=== PATIENT | female | born 1965 | race Caucasian/White ===

== ENCOUNTER → 2021-05-17 | Outpatient (CLI) | payer BC ==
[~2021-05-17] MED LIST: NO HOME MEDICATIONS
== END ==
LOC: MC.RAD 07:00
DX: N63.10 Unspecified lump in the right breast, unspecified quadrant (principal)

== ENCOUNTER → 2021-06-04 | Outpatient (CLI) | payer BC | LOC: MC.RAD 07:57 | DX: N63.10 Unspecified lump in the right breast, unspecified quadrant (principal); Z98.82 Breast implant status ==